=== PATIENT | male | born 1990 | race African-American/Black ===

== ENCOUNTER 2017-06-09 12:47 | Emergency (ER) | payer OTHER ==
[~2017-06-09] VITALS: Ht 170.2 cm; Wt 59.1 kg
[2017-06-09] MEDS ORDERED: IBUP-1114 PO (13:04)
[2017-06-09] MEDS ORDERED: TYLE325T5 PO (13:04)
[2017-06-09] MEDS ORDERED: ONDANSETRON 4MG/2ML VIAL (J2405) IV PRN (14:00)
[2017-06-09] MEDS ORDERED: NS 1,000 ML IV ONE (14:00)
[2017-06-09] MEDS ORDERED: KETOROLAC 30 MG/ML VIAL (J1885) IV ONE (14:00)
[2017-06-09 14:28] LABS: BASO % 0.6 % (0.0-1.0); EOS # 0.4 K/mm3 (0.0-0.50); EOS % 6.2 % (0.0-3.0); LARGE UNSTAINED CELL # 0.2 K/mm3 (0.0-0.4); LARGE UNSTAINED CELL % 2.7 % (0.0-4.0); LYMPH # 1.9 K/mm3 (1.5-6.5); LYMPH % 28.4 % (24.0-44.0); MEAN CORPUSCULAR HEMOGLOBIN 23.9 pg (27.0-33.0); MEAN CORPUSCULAR HGB CONC 30.5 g/dl (32.0-36.5); MEAN CORPUSCULAR VOLUME 78.5 fl (80.0-96.0); MONO # 0.4 K/mm3 (0.0-0.8); MONO % 6.9 % (0.0-5.0); NEUTROPHILS # 3.4 K/mm3 (1.8-7.7); NEUTROPHILS % 55.2 % (36.0-66.0); PLATELET COUNT, AUTOMATED 176 k/mm3 (150-450); RED CELL DISTRIBUTION WIDTH 13.9 % (11.5-14.5); WHITE BLOOD COUNT 6.2 K/mm3 (4.0-10.0)
[2017-06-09 14:51] LABS: ALBUMIN/GLOBULIN RATIO 1.21 (1.00-1.93); ALKALINE PHOSPHATASE 59 U/L (45-117); ALT/SGPT 19 U/L (12-78); ANION GAP 6 MEQ/L (8-16); AST/SGOT 17 U/L (15-37); BILIRUBIN,TOTAL 0.4 MG/DL (0.2-1.0); BLOOD UREA NITROGEN 15 MG/DL (7-18); CARBON DIOXIDE LEVEL 30 MEQ/L (21-32); CHLORIDE LEVEL 108 MEQ/L (98-107); CREATININE FOR GFR 0.91 MG/DL (0.70-1.30); GLOMERULAR FILTRATION RATE > 60.0 (>60); GLUCOSE, FASTING 85 MG/DL (70-105); POTASSIUM SERUM 4.5 MEQ/L (3.5-5.1); SODIUM LEVEL 144 MEQ/L (136-145); TOTAL PROTEIN 7.3 GM/DL (6.4-8.2)
--- NOTE | 2017-06-09 15:20 | REP ---
CT ABDOMEN AND PELVIS WITHOUT CONTRAST: CT abdomen and pelvis performed without IV contrast in the axial plane with sagittal and coronal reconstruction images. Visualized lung bases are clear. Liver, spleen, adrenals, pancreas and kidneys are grossly unremarkable. No renal calculi are seen. There is no evidence of hydroureteronephrosis. No abdominal aortic aneurysm is seen. There is no gross adenopathy. No free air is seen. I see no evidence of significant free fluid. No gross bowel wall thickening is seen. There is no evidence for appendicitis. There is no evidence of a pelvic mass. IMPRESSION: Grossly negative noncontrast CT abdomen and pelvis. No evidence of appendicitis. No evidence of renal calculus or hydronephrosis. Signed by Shawn Martinez MD 06/09/2017 04:51 P
[2017-06-09] MEDS ORDERED: ZOFR4TAB3 PO (16:04)
[2017-06-09] MEDS ORDERED: BENT20TA PO (16:04)
[2017-06-09] MEDS ORDERED: KETO10TAB PO (16:04)
[2017-06-09 16:08] VITALS: BP 114/69
== END 2017-06-09 16:11 | disposition home or self-care (01) ==
LOC: M ED 12:47
DX: R10.84 Generalized abdominal pain (principal); R11.0 Nausea; Z72.0 Tobacco use
CPT/HCPCS: 74176; 80053; 83690; 85025; 87880; 96374; 96375; 99283; J1885; J2405

== ENCOUNTER 2017-11-22 05:38 | Emergency (ER) | payer OTHER ==
[2017-11-22] MEDS: AUGMENTIN 875 MG TAB PO (06:53)
== END 2017-11-22 08:46 | disposition home or self-care (01) ==
LOC: M ED 05:38
DX: S61.452A Open bite of left hand, initial encounter (principal); S51.851A Open bite of right forearm, initial encounter; W54.0XXA Bitten by dog, initial encounter; Y92.009 Unspecified place in unspecified non-institutional (private) residence as the place of occurrence of the external cause; F17.210 Nicotine dependence, cigarettes, uncomplicated
CPT/HCPCS: 73090

== ENCOUNTER → 2018-09-23 | Outpatient (REF) | payer OTHER ==
[~2018-09-23] MED LIST: AUGM500T34 PO; BENT20TA PO; IBUP-1114 PO; IRON325T7 PO; KETO10TAB PO; MOOD STABILIZER; TYLE325T5 PO; VITA200016 PO; VITA500C24 PO; ZOFR4TAB14 PO
[2018-09-24 15:57] LABS: CHLAMYDIA DNA AMPLIFICATION NEGATIVE (NEGATIVE); GC DNA AMPLIFICATION POSITIVE (NEGATIVE)
== END ==
LOC: M SFHCLERA 20:29
PROVIDERS: ATTEND Physician Assistant
DX: R36.9 Urethral discharge, unspecified (principal)
CPT/HCPCS: 81002; 87070; 87077; 87086; 87491; 87591; 96372; G0435; G0463; J0696

== ENCOUNTER 2018-09-26 21:51 | Emergency (ER) | payer OTHER ==
[~2018-09-26] VITALS: Ht 172.7 cm; Wt 57.3 kg
[~2018-09-26 21:51] MED LIST changes: -IRON325T7 PO; -MOOD STABILIZER; -VITA200016 PO; -VITA500C24 PO
[2018-09-26] MEDS ORDERED: IRON325T7 PO (22:09)
[2018-09-26] MEDS ORDERED: VITA200016 PO (22:09)
[2018-09-26] MEDS ORDERED: MOOD STABILIZER (22:09)
[2018-09-26] MEDS ORDERED: VITA500C24 PO (22:09)
[2018-09-26] MEDS ORDERED: NICOTINE 21MG/24HR 1 EA TRANSDERMAL TD ONE (22:45)
[2018-09-26 23:03] LABS: HEMATOCRIT 41.8 % (42.0-52.0); MEAN CORPUSCULAR HEMOGLOBIN 23.5 pg (27.0-33.0); MEAN CORPUSCULAR HGB CONC 31.1 g/dl (32.0-36.5); MEAN CORPUSCULAR VOLUME 75.5 fl (80.0-96.0); PLATELET COUNT, AUTOMATED 178 10^3/uL (150-450); RED BLOOD COUNT 5.54 10^6/uL (4.30-6.10); WHITE BLOOD COUNT 6.8 10^3/uL (4.0-10.0)
[2018-09-26 23:40] LABS: AMPHETAMINES LEVEL URINE NEGATIVE (NEGATIVE); BARBITURATES URINE NEGATIVE (NEGATIVE); BENZODIAZEPINES URINE NEGATIVE (NEGATIVE); CANNABINOIDS URINE NEGATIVE (NEGATIVE); COCAINE METABOLITE URINE NEGATIVE (NEGATIVE); METHADONE URINE NEGATIVE (NEGATIVE); OPIATES URINE NEGATIVE (NEGATIVE); PHENCYCLIDINE URINE NEGATIVE (NEGATIVE)
[2018-09-26 23:53] LABS: ACETAMINOPHEN LEVEL < 2.0 UG/ML (10.0-30.0); ALT/SGPT 21 U/L (12-78); BILIRUBIN,DIRECT < 0.1 MG/DL (0.0-0.2); BILIRUBIN,TOTAL 0.2 MG/DL (0.2-1.0); BLOOD UREA NITROGEN 10 MG/DL (7-18); CALCIUM LEVEL 8.5 MG/DL (8.5-10.1); CARBON DIOXIDE LEVEL 28 MEQ/L (21-32); CHLORIDE LEVEL 109 MEQ/L (98-107); CREATININE FOR GFR 1.04 MG/DL (0.70-1.30); GLOMERULAR FILTRATION RATE > 60.0 (>60); GLUCOSE, FASTING 83 MG/DL (70-100); SALICYLATE LEVEL 2.4 MG/DL (5.0-30.0); SODIUM LEVEL 145 MEQ/L (136-145); TOTAL PROTEIN 7.2 GM/DL (6.4-8.2)
[2018-09-27 00:17] VITALS: BP 139/87
[2018-10-08] MEDS ORDERED: AMOX500T2 PO (03:54)
[2018-10-08] MEDS ORDERED: BUPR150T3 PO ×2 (03:54→06:26)
[2018-10-08] MEDS ORDERED: MELA3TAB PO ×2 (03:54→06:26)
[2018-10-08] MEDS ORDERED: LAMO25TA4 PO ×2 (03:54→06:26)
[2018-10-08] MEDS ORDERED: VITA2000 PO (03:54)
[2018-10-08] MEDS ORDERED: ZOLO50TA PO (03:54)
[2018-10-08] MEDS ORDERED: FERR1TAB8 PO (06:26)
[2018-10-08] MEDS ORDERED: VITA500C24 PO (06:26)
[2018-10-08] MEDS ORDERED: VITA100066 PO (06:26)
[2018-10-08] MEDS ORDERED: SERT-138 PO (06:26)
== END 2018-09-27 00:20 | disposition home or self-care (01) ==
LOC: M ED 21:51
DX: F41.8 Other specified anxiety disorders (principal); S50.811A Abrasion of right forearm, initial encounter; W26.9XXA Contact with unspecified sharp object(s), initial encounter; Y92.89 Other specified places as the place of occurrence of the external cause; F33.9 Major depressive disorder, recurrent, unspecified; F17.210 Nicotine dependence, cigarettes, uncomplicated
CPT/HCPCS: 36415; 80048; 80076; 80307; 84443; 85027; 99284; G0480

== ENCOUNTER 2018-10-09 15:18 | Inpatient (IN) | payer OTHER ==
[~2018-10-09] VITALS: Ht 170.2 cm; Wt 62.0 kg
[~2018-10-09 15:18] MED LIST changes: +AMOX500T2 PO; +BUPR150T3 PO; +FERR1TAB8 PO; +IRON325T7 PO; +LAMO25TA4 PO; +MELA3TAB PO; +MOOD STABILIZER; +SERT-138 PO; +VITA100066 PO; +VITA2000 PO; +VITA200016 PO; +VITA500C24 PO; +ZOLO50TA PO
[2018-10-09] MEDS ORDERED: MAALOX 30 ML SUSP *UDC PO PRN (15:30)
[2018-10-09] MEDS ORDERED: MOM 30ML SUSPENSION UDC PO PRN (15:30)
[2018-10-09] MEDS ORDERED: ACETAMINOPHEN TAB 650MG DOSE (2X325MG) PO PRN (15:30)
[2018-10-09 19:04] VITALS: BP 136/82
[2018-10-09] MEDS: ARIPiprazole 2 MG TAB PO SCH (20:26)
[2018-10-09] MEDS: NICOTINE POLACRILEX 2 MG GUM PO PRN (20:26)
[2018-10-09] MEDS: traZODone 50 MG TAB PO PRN (21:40)
[2018-10-10 06:39] VITALS: BP 125/86
[2018-10-10 07:14] LABS: BASO # 0.1 10^3/uL (0.0-0.2); BASO % 1.3 % (0.0-1.0); EOS # 0.3 10^3/uL (0.0-0.50); EOS % 5.6 % (0.0-3.0); HEMATOCRIT 37.9 % (42.0-52.0); HEMOGLOBIN 11.6 g/dl (13.5-17.5); LYMPH % 55.3 % (24.0-44.0); MEAN CORPUSCULAR HEMOGLOBIN 23.3 pg (27.0-33.0); MEAN CORPUSCULAR HGB CONC 30.6 g/dl (32.0-36.5); MEAN CORPUSCULAR VOLUME 76.3 fl (80.0-96.0); MONO # 0.5 10^3/uL (0.0-0.8); MONO % 9.9 % (0.0-5.0); NEUTROPHILS # 1.5 10^3/uL (1.8-7.7); NEUTROPHILS % 27.7 % (36.0-66.0); PLATELET COUNT, AUTOMATED 186 10^3/uL (150-450); RED BLOOD COUNT 4.97 10^6/uL (4.30-6.10); WHITE BLOOD COUNT 5.4 10^3/uL (4.0-10.0)
[2018-10-10 07:42] LABS: PERCENT SATURATION 37.2 % (19.7-50.0)
[2018-10-10] MEDS: VITAMIN D 1,000 INTERNATIONAL UNITS TABLET PO SCH (09:41)
[2018-10-10] MEDS: FERROUS SULFATE 325MG TAB PO SCH (09:41)
[2018-10-10 18:02] VITALS: BP 128/74
[2018-10-10] MEDS: NICOTINE POLACRILEX 2 MG GUM PO PRN (18:29)
[2018-10-10] MEDS: ARIPiprazole 2 MG TAB PO SCH (20:51)
[2018-10-10] MEDS: traZODone 50 MG TAB PO PRN (20:52)
[2018-10-11 06:33] VITALS: BP 134/69
[2018-10-11] MEDS: FERROUS SULFATE 325MG TAB PO SCH (09:23)
[2018-10-11] MEDS: VITAMIN D 1,000 INTERNATIONAL UNITS TABLET PO SCH (09:23)
--- NOTE | 2018-10-11 12:10 | MHHPEPDOC ---
General Date Of Admission: Oct 10, 2018 Legal Status: 9.37 Chief Complaint "I tried to kill myself" History of Present Illness HISTORY OF THE PRESENT ILLNESS: Patient is a 28 -year-old , AD, male, with no previous psych history who was transferred from medical unit and medically stabilized s/p intentional OD on unknown amount of Wellbutrin, vitamin D, iron pills, Lamictal, and Zoloft as a suicide attempt. 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 He is drowsy, lethargic, difficult to arouse initially on presentation. He has a past medical history of bipolar disorder, anxiety, and anemia. It is unclear how much of pills he has taken but from the emergency room provider, the individual who accompanied the patient states he had a bottle, a bag full of pills which contained Wellbutrin, vitamin D, iron pills, Lamictal, and Zoloft. The quantity which patient took is unclear. Patient states he has felt nauseous and has a few episodes of non-bloody, nonbilious vomiting. He denies any chest pain, shortness of breath, cough, fevers, chills, urinary symptoms, abdominal pain, constipation or diarrhea. He is arousable but somnolent, in no apparent distress." See assessment for pt status today. Past Psychiatric History Previous Psychiatric Diagnosis: bipolar d/o, anxiety Previous Psychiatric Admissions: denies Suicide Attempts: history of self injury per records Psychiatric Follow-up: [facility] Psychiatric medications: wellbutrin, lamictal, zoloft Past Medical History Medical Problems anemia Head Injury: No Seizures: No Hospitalizations: No Surgeries: No Family Medical/Psychiatric HX Medical Problems noncontributory Psychiatric Disorders: No Addiction: No Suicide Attemps/Completions: No Addiction History nicotine (five cigarettes per day), alcohol (socially on weekends) Social History Childhood: born and raised by his mother in [place], never met father, youngest of 5 siblings, speaks with once a week, good childhood Abuse/Trauma:denies Current Living Situation: [place] [facility] [place] Education: some college in philosophy, may want to be a teacher if he gets out of the 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[employer], [employer], 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 Social Support: fiance and family Legal: denies Marital: never , no kids, has a finance who is supportive Mental Status Examination General Appearance: well groomed, appears stated age, hospital scubs/clothing Build: average Demeanor: average, other (pleasant) Eye Contact: average Activity: average Behavior: cooperative Speech: clear, normal volume, reg/rate,rhythm,volume, other (lisp) Mood: depressed Mood "ok" Affect: full, appropriate, congruent Thought Process: logical/linear, depressed Thought Content (Delusions): none reported Thought Content (Other): none reported Thought Content (Aggressive): none reported Perception (Hallucinations): none reported Perception (Other): none reported Cognition (Impairment of): none reported Cognition(Intelligence Est.): average Oriented: Awake, Alert, Oriented times three Insight: fair Judgment: Fair Psychosis: Denies Diagnoses Bipolar I d/o mre depressed w/o psychosis Assessment Pt seen today and states he took an OD on Wellbutrin, Zoloft, and melatonin b/c he was feeling stressed out "by my company b/c it feels like I'm being targeted... I know they hate me." States he just became frustrated and took OD b/c of not wanting to deal with his Anoop anymore as he feels most of the targeting is by them... all of them. States today that he regrets his OD as he has a very supportive fiance and family that he doesn't want to loose. States he doesn't wanted to leave. Future oriented toward possibly getting out of the [employer] and being a teacher. States though that he likes his job at work and aiding others, the interaction. States he's tolerating his abilify and it's beneficial. Agreeable to increase to 5mg daily for improved mood stabilization. 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 Denies current insomnia, SI/HI, hallucinations, delusions. Is attending all groups and finding them beneficial. Initial Treatment Plan 1. Patient was admitted on a 9.37 status. 2. Complete history was obtained. 3. With patients permission, family will be contacted and database will be expanded. 4. Patients medication regimen will be reviewed and changed accordingly. 5. Patient will be provided with protected environment. 6. Patient will be treated with individual, group, and milieu therapies. 7. Patient will receive supportive psych-education. 8. Discharge planning will commence immediately. 9. Outpatient follow-up treatment will be strongly recommended. 10. The initial treatment plan will focus initially on: * Depression. * Risk for suicide. * Substance abuse. 11. increase abilify to 5mg daily for mood ESTIMATED LENGTH OF STAY: 5-7 DAYS. TIME SPENT COUNSELING AND COORDINATING INITIAL CARE: 60 minutes. Vital Signs Vital Signs Date Time Temp Pulse Resp B/P (MAP) Pulse Ox O2 Delivery O2 Flow Rate FiO2 10/11/18 06:33 98.0 50 14 134/69 (90) 10/09/18 19:04 99 Room Air Allergies Coded Allergies: No Known Allergies (Unverified , 11/22/17) AKI MCMILLAN DO Oct 11, 2018 12:10 pm
--- NOTE | 2018-10-11 13:54 | MHHPE ---
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 The patient apparently has a bag full of pills with multiple medications including Wellbutrin, vitamin D, iron pills, Lamictal, and Zoloft and the patient indicated he is not sure what he took as an overdose. The patient is very vague as to why he ingested the pills that he did and I suspect he is just minimizing his symptoms, because he does not want to be admitted to the psychiatric unit. He admits however that he has been seen at [facility], they first treated him with Zoloft and Wellbutrin and then the medicine was changed to Lamictal. He says that they think that he might be bipolar. He describes episodes where he has a lot of increased energy, very little need for sleep, and that he is constantly doing things and having racing thoughts and then he has episodes where he gets depressed, he can sleep up to three days straight, and he feels very sad he says during those days. He is very vague as to how long he may be in either one of these episodes. The patient also has a history of cutting. He actually states that he was in the emergency room in early September where he had made multiple cuts, but he denied being depressed and so he was not hospitalized. PAST PSYCHIATRIC HISTORY: This appears to be his first hospitalization, but it is not clear if there have been other episodes of cutting as I am not sure how reliable a historian he is at this point. FAMILY HISTORY: He thinks his mother has psychiatric problems, but she has never been diagnosed. He denies any suicides in the family. MEDICAL HISTORY: The patient denies any acute medical problems. ABUSE HISTORY: He denies any history of any physical or sexual abuse. SUBSTANCE ABUSE HISTORY: He denies any problems with alcohol or drugs. REVIEW OF SYSTEMS: VITAL SIGNS: The patient's blood pressure is 128/73, pulse 54 and respirations 16. APPEARANCE: The patient does not appear to be in any apparent distress. NEUROMUSCULAR SYSTEM: The patient's gait is normal and there was no involuntary movements noted. All other systems were reviewed and found to be negative. MENTAL STATUS EXAMINATION: The patient is alert and oriented times three. Eye contact is fair. Psychomotor activity is decreased. He is verbally spontaneous. There is no formal thought disorder noted. He does appear to be guarded however. He says that his mood is depressed, affect is constricted, but appropriate to his mood. He is not psychotic. He is denying being suicidal at this point. Denies homicidal ideation. Concentration is fair. Memory intact. Insight and judgment is poor. DIAGNOSIS: Other specified bipolar disorder. Rule out borderline personality disorder. TREATMENT PLAN: At this point, we will continue to monitor the patient for continued resolution of suicidal ideations and for continued elevation of his mood. The patient's had only tried the Lamictal for a few days prior to admission and indicated that he was not very compliant with taking it everyday, and so I am not going to give him Lamictal because of the risk of pretty serious rash, especially in patient's that are not very compliant. Instead, I am going to start him on a mood stabilizer, Abilify 2 mg at bedtime and he says that he does have trouble with sleep at times, and so we will try trazodone for insomnia. We will involve him in individual, group and milieu therapy and discharge home with appropriate follow-up when stable. LEONARDO
--- NOTE | 2018-10-11 16:58 | HPE ---
DATE OF ADMISSION: 10/09/2018 Please refer to the psychiatric history and evaluation for further details on this admission. 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 His ethyl alcohol (EtOH) in the emergency room was 0.107. ALLERGIES: No known allergies. PAST MEDICAL HISTORY: Bipolar disorder, anxiety, and anemia. PAST SURGICAL HISTORY: Negative. SOCIAL HISTORY: He is . He has a significant other. 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 He smokes 1 to 1 1/2 packs of cigarettes a day. He rarely drinks alcohol. He denies any recreational drug use. EKG on PCU was sinus bradycardia, 55, sinus rhythm, 82, no changes, no acute abnormalities. HOME MEDICATIONS: - vitamin C 500 mg by mouth daily - bupropion 150 mg daily - vitamin D 1000 units daily - iron 325 mg by mouth daily - Lamictal 25 mg by mouth daily - melatonin 30 mg nightly - sertraline 100 mg by mouth daily REVIEW OF SYSTEMS: Negative. He was feeling well. He had no nausea or vomiting, was eating and drinking okay, was moving his bowels and urinating without problem. PHYSICAL EXAMINATION: 28-year-old, cooperative, male, no acute distress. Height 67 inches, weight 61.4 kg, body mass index (BMI) 21.2. Blood pressure 132/80, pulse 70, respirations 16, temperature 99, oxygen saturation 99% on room air. Patient is alert and oriented times three. Pupils equal and reactive to light. Extraocular movements are intact. Cornea and sclerae clear. Conjunctivae is normal. No facial asymmetry. Pharynx, tongue, gums pink and moist. Tongue is midline. Neck is supple without lymphadenopathy. No thyromegaly. No goiter. Carotids 2+ without bruit. Chest clear to auscultation without wheeze or retraction. Heart is regular. Abdomen benign. Bowel sounds positive. Genitourinary/rectal not done. Extremities show equal strength. Full range of motion. No cyanosis, clubbing, or edema. Peripheral pulses equal and palpable bilaterally. Skin is warm and dry. IMPRESSION/PLAN: 1. Psychiatric plan per psychiatry. 2. History of vitamin D. Continue supplement. 3. History of iron. Continue supplement. Will get an iron, iron binding capacity, and ferritin level.
[2018-10-11 18:00] VITALS: BP 127/71
--- NOTE | 2018-10-11 20:50 | IPN ---
DATE: 10/10/2018 The patient today states that he continues to feel very depressed. His mood is 8/10 where the closer to 10 is the most depressed. He is feeling hopeless and helpless but not as intense as before. He did say he slept good with trazodone. MENTAL STATUS EXAM: This patient is alert and oriented times three. Eye contact is fair. Psychomotor activity is decreased. He is verbally spontaneous. There is no formal thought disorder noted. Mood is depressed. Affect full range and approriate. He is not psychotic, suicidal, homicidal. Concentration is fair. Memory intact. Insight and judgment is poor. DIAGNOSIS: Unspecified bipolar disorder. TREATMENT PLAN: We will continue to monitor him for continued resolution of suicidal ideations and for continued elevation and stabilization of his mood, and we will titrate his medications as indicated.
[2018-10-12 06:58] VITALS: BP 132/79
[2018-10-12] MEDS: VITAMIN D 1,000 INTERNATIONAL UNITS TABLET PO SCH (08:25)
[2018-10-12] MEDS: FERROUS SULFATE 325MG TAB PO SCH (08:25)
--- NOTE | 2018-10-12 09:31 | MHIPNPDOC ---
[facility] Progress Note Progress Note DATE OF SERVICE: 10/12/18 HISTORY: Patient is a 28 -year-old , AD, male, with no previous psych history who was transferred from medical unit and medically stabilized s/p intentional OD on unknown amount of Wellbutrin, vitamin D, iron pills, Lamictal, and Zoloft as a suicide attempt. 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 He is drowsy, lethargic, difficult to arouse initially on presentation. He has a past medical history of bipolar disorder, anxiety, and anemia. It is unclear how much of pills he has taken but from the emergency room provider, the individual who accompanied the patient states he had a bottle, a bag full of pills which contained Wellbutrin, vitamin D, iron pills, Lamictal, and Zoloft. The quantity which patient took is unclear. Patient states he has felt nauseous and has a few episodes of non-bloody, nonbilious vomiting. He denies any chest pain, shortness of breath, cough, fevers, chills, urinary symptoms, abdominal pain, constipation or diarrhea. He is arousable but somnolent, in no apparent distress." Pt seen on admission and states he took an OD on Wellbutrin, Zoloft, and melatonin b/c he was feeling stressed out "by my company b/c it feels like I'm being targeted... I know they hate me." States he just became frustrated and took OD b/c of not wanting to deal with his Anoop anymore as he feels most of the targeting is by them... all of them. States today that he regrets his OD as he has a very supportive fiance and family that he doesn't want to loose. States he doesn't wanted to leave. Future oriented toward possibly getting out of the [employer] and being a teacher. States though that he likes his job at work and aiding others, the interaction. States he's tolerating his abilify and it's beneficial. Agreeable to increase to 5mg daily for improved mood stabilization. 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 Denies current insomnia, SI/HI, hallucinations, delusions. Is attending all groups and finding them beneficial. VITAL SIGNS: See below. NEW TEST RESULTS: See below. CURRENT MEDICATIONS: See below. MENTAL STATUS EXAMINATION: General Appearance: well groomed, appears stated age, hospital scubs/clothing Build: average Demeanor: average, other (pleasant) Eye Contact: average Activity: average Behavior: cooperative Speech: clear, normal volume, reg/rate,rhythm,volume, other (lisp) Mood: less depressed Mood "alright" Affect: full, appropriate, congruent Thought Process: logical/linear, less depressed Thought Content (Delusions): none reported Thought Content (Other): none reported Thought Content (Aggressive): none reported Perception (Hallucinations): none reported Perception (Other): none reported Cognition (Impairment of): none reported Cognition(Intelligence Est.): average Oriented: Awake, Alert, Oriented times three Insight: fair Judgment: Fair Psychosis: Denies DIAGNOSES: 1.Bipolar I d/o mre depressed w/o psychosis ASSESSMENT:Pt seen today and states his mood is better. Still has yet to speak with his Anoop about how he feels "singled out" by them and encouraged to call them while he's here in a supportive environment and discuss how he feels in the hopes that he's acknowledged by them. States he's tolerating his abilify and it's beneficial. Denies current insomnia, SI/HI, hallucinations, delusions. Is attending all groups and finding them beneficial. He feels safe here. MANAGEMENT PLAN: continue current plan. Medications: abilify to 5mg daily for mood TIME SPENT: 30 minutes. Vital Signs Vital Signs Date Time Temp Pulse Resp B/P (MAP) Pulse Ox O2 Delivery O2 Flow Rate FiO2 10/12/18 06:58 98.0 59 14 132/79 (96) 10/09/18 19:04 99 Room Air Current Medications Current Medications Acetaminophen (Tylenol Tab) 650 mg Q6HP PRN PO HEADACHE or DISCOMFORT Last administered on 10/09/18at 21:41; Start 10/09/18 at 15:30 Al Hydrox/Mg Hydrox/Simethicone (Mylanta) 30 ml Q4HP PRN PO HEARTBURN/INDIGESTION; Start 10/09/18 at 15:30 Aripiprazole (AbiLIFY) 2 mg QHS PO Last administered on 10/10/18at 20:51; Start 10/09/18 at 21:00; Stop 10/11/18 at 12:11; Status DC Aripiprazole (AbiLIFY) 5 mg QHS PO Last administered on 10/11/18at 21:14; Start 10/11/18 at 21:00 Ferrous Sulfate (Ferrous Sulfate) 325 mg DAILY PO Last administered on 10/12/18at 08:25; Start 10/10/18 at 09:00 Magnesium Hydroxide (Milk Of Magnesia) 30 ml DAILYPRN PRN PO CONSTIPATION; Start 10/09/18 at 15:30 Nicotine (Nicorette) 2 mg Q2HP PRN PO NICOTINE WITHDRAWAL Last administered on 10/10/18at 18:29; Start 10/09/18 at 19:45 Trazodone HCl (Desyrel) 50 mg QHSP PRN PO INSOMNIA Last administered on 10/10/18at 20:52; Start 10/09/18 at 15:30 Vitamin D (Vitamin D) 1,000 units DAILY PO Last administered on 10/12/18at 08:25; Start 10/10/18 at 09:00 Allergies Coded Allergies: No Known Allergies (Unverified , 11/22/17) AKI MCMILLAN DO Oct 12, 2018 9:31 am
[2018-10-12 18:22] VITALS: BP 128/70
[2018-10-13 06:56] VITALS: BP 122/76
[2018-10-13] MEDS: VITAMIN D 1,000 INTERNATIONAL UNITS TABLET PO SCH (08:17)
[2018-10-13] MEDS: NICOTINE POLACRILEX 2 MG GUM PO PRN (08:18)
[2018-10-13] MEDS: FERROUS SULFATE 325MG TAB PO SCH (08:18)
--- NOTE | 2018-10-13 08:43 | MHDSPDOC ---
[facility] Discharge Summary Discharge Summary DATE OF ADMISSION: Oct 09, 2018 at 3:18 pm DATE OF DISCHARGE: Oct 13, 2018 DISCHARGE DIAGNOSES: 1. 1.Bipolar I d/o mre depressed w/o psychosis REASON FOR ADMISSION: Patient is a 28 -year-old , AD, male, with no previous psych history who was transferred from medical unit and medically stabilized s/p intentional OD on unknown amount of Wellbutrin, vitamin D, iron pills, Lamictal, and Zoloft as a suicide attempt. 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 He is drowsy, lethargic, difficult to arouse initially on presentation. He has a past medical history of bipolar disorder, anxiety, and anemia. It is unclear how much of pills he has taken but from the emergency room provider, the individual who accompanied the patient states he had a bottle, a bag full of pills which contained Wellbutrin, vitamin D, iron pills, Lamictal, and Zoloft. The quantity which patient took is unclear. Patient states he has felt nauseous and has a few episodes of non-bloody, nonbilious vomiting. He denies any chest pain, shortness of breath, cough, fevers, chills, urinary symptoms, abdominal pain, constipation or diarrhea. He is arousable but somnolent, in no apparent distress." Pt seen on admission and states he took an OD on Wellbutrin, Zoloft, and melatonin b/c he was feeling stressed out "by my company b/c it feels like I'm being targeted... I know they hate me." States he just became frustrated and took OD b/c of not wanting to deal with his Anoop anymore as he feels most of the targeting is by them... all of them. States today that he regrets his OD as he has a very supportive fiance and family that he doesn't want to loose. States he doesn't wanted to leave. Future oriented toward possibly getting out of the [employer] and being a teacher. States though that he likes his job at work and aiding others, the interaction. States he's tolerating his abilify and it's beneficial. Agreeable to increase to 5mg daily for improved mood stabilization. 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 Denies current insomnia, SI/HI, hallucinations, delusions. Is attending all groups and finding them beneficial. CONSULTANTS INVOLVED: none TREATMENT AND PROGRESS ON THE UNIT : Pt was admitted to [facility], seen for psychiatric assessment and started on abilify 10mg qhs. He was provided trazodone 50mg qhs prn insomnia. Pt found his medications beneficial and tole rated them well. He attended groups daily during his stay. His symptoms improved with treatment. On day of discharge he denied depression, anxiety, insomnia, SI/HI, hallucinations, delusions. He was discharged home after Anoop meeting with follow-up at [facility]. He felt safe for discharge. DISCHARGE ASSESSMENT: Pt seen today and states his mood is good. States he's looking forward to going home and being with his fiance who is supportive. States he's tolerating his abilify and it's beneficial. Denies depression, anxiety, insomnia, SI/HI, hallucinations, delusions. He attended all groups during his stay and found them beneficial. He feels safe to be discharged home with his Anoop today. MENTAL STATUS EXAMINATION ON DISCHARGE: General Appearance: well groomed, appears stated age, hospital scrubs/clothing Build: average Demeanor: average, other (pleasant) Eye Contact: average Activity: average Behavior: cooperative Speech: clear, normal volume, reg/rate,rhythm,volume, other (lisp) Mood: euthymic, full, bright Mood "good" Affect: full, appropriate, congruent Thought Process: logical/linear Thought Content (Delusions): none reported Thought Content (Other): none reported Thought Content (Aggressive): none reported Perception (Hallucinations): none reported Perception (Other): none reported Cognition (Impairment of): none reported Cognition(Intelligence Est.): average Oriented: Awake, Alert, Oriented times three Insight: good Judgment: good Psychosis: Denies MEDICATIONS ON DISCHARGE: abilify to 5mg daily for mood trazodone 50mg qhs prn insomnia PLAN/FOLLOWUP ARRANGEMENTS: d/c home with Anoop with follow-up at [facility]. The amount of time spent in the coordination of care for this patient was approximately 30 minutes. Vital Signs/I&Os Vital Signs Date Time Temp Pulse Resp B/P (MAP) Pulse Ox O2 Delivery O2 Flow Rate FiO2 10/13/18 06:56 98.3 54 16 122/76 (91) 10/09/18 19:04 99 Room Air Medications Scheduled Aripiprazole (Aripiprazole) 5 Mg Tab, 5 MG PO QHS for mood, #10 Scheduled PRN Trazodone HCl (Trazodone HCl) 50 Mg Tab, 50 MG PO QHSP PRN for INSOMNIA, #10 Allergies Coded Allergies: No Known Allergies (Unverified , 11/22/17) AKI MCMILLAN DO Oct 13, 2018 8:42 am
[2018-10-13] MEDS ORDERED: ARIP5TA PO (08:44)
[2018-10-13] MEDS ORDERED: TRAZO50TA PO (08:44)
== END 2018-10-13 11:00 | disposition home or self-care (01) | DRG 885 ==
LOC: M ED INP 15:18 → M PSY 17:58
PROVIDERS: ADMIT Psychiatry & Neurology Psychiatry; ATTEND Psychiatry & Neurology Psychiatry
DX: F31.30 Bipolar disorder, current episode depressed, mild or moderate severity, unspecified (principal); F17.210 Nicotine dependence, cigarettes, uncomplicated; D64.9 Anemia, unspecified; Z91.5 Personal history of self-harm; Z79.899 Other long term (current) drug therapy

== ENCOUNTER 2018-11-05 21:22 | Emergency (ER) | payer OTHER ==
[~2018-11-05 21:22] MED LIST changes: +ARIP5TA PO; +TRAZO50TA PO
[2018-11-05] MEDS ORDERED: MELA3TAB49 PO (21:41)
[2018-11-05 21:43] VITALS: BP 129/81
[2018-11-05 21:59] LABS: HEMATOCRIT 41.6 % (42.0-52.0); MEAN CORPUSCULAR HEMOGLOBIN 23.6 pg (27.0-33.0); MEAN CORPUSCULAR HGB CONC 31.3 g/dl (32.0-36.5); MEAN CORPUSCULAR VOLUME 75.5 fl (80.0-96.0); PLATELET COUNT, AUTOMATED 194 10^3/uL (150-450); RED BLOOD COUNT 5.51 10^6/uL (4.30-6.10); WHITE BLOOD COUNT 5.5 10^3/uL (4.0-10.0)
[2018-11-05 22:33] LABS: ACETAMINOPHEN LEVEL < 2.0 UG/ML (10.0-30.0); ALBUMIN 4.2 GM/DL (3.2-5.2); ALT/SGPT 32 U/L (12-78); BILIRUBIN,DIRECT 0.1 MG/DL (0.0-0.2); BILIRUBIN,TOTAL 0.4 MG/DL (0.2-1.0); BLOOD UREA NITROGEN 8 MG/DL (7-18); CALCIUM LEVEL 8.8 MG/DL (8.5-10.1); CARBON DIOXIDE LEVEL 28 MEQ/L (21-32); CHLORIDE LEVEL 107 MEQ/L (98-107); CREATININE FOR GFR 0.94 MG/DL (0.70-1.30); ETHYL ALCOHOL (ETHANOL) < 0.003 % (0.000-0.010); GLOMERULAR FILTRATION RATE > 60.0 (>60); GLUCOSE, FASTING 84 MG/DL (70-100); POTASSIUM SERUM 4.1 MEQ/L (3.5-5.1); SALICYLATE LEVEL < 1.7 MG/DL (5.0-30.0); SODIUM LEVEL 142 MEQ/L (136-145); TOTAL PROTEIN 7.4 GM/DL (6.4-8.2)
[2018-11-05 23:48] LABS: AMPHETAMINES LEVEL URINE NEGATIVE (NEGATIVE); BARBITURATES URINE NEGATIVE (NEGATIVE); BENZODIAZEPINES URINE NEGATIVE (NEGATIVE); CANNABINOIDS URINE NEGATIVE (NEGATIVE); COCAINE METABOLITE URINE NEGATIVE (NEGATIVE); METHADONE URINE NEGATIVE (NEGATIVE); OPIATES URINE NEGATIVE (NEGATIVE); PHENCYCLIDINE URINE NEGATIVE (NEGATIVE)
[2018-11-06 00:31] LABS: FREE T4 0.93 NG/DL (0.76-1.46)
== END 2018-11-06 01:22 | disposition home or self-care (01) ==
LOC: M ED 21:22
DX: S50.812A Abrasion of left forearm, initial encounter (principal); X78.9XXA Intentional self-harm by unspecified sharp object, initial encounter; Y92.89 Other specified places as the place of occurrence of the external cause; Z91.5 Personal history of self-harm; F32.9 Major depressive disorder, single episode, unspecified; F17.210 Nicotine dependence, cigarettes, uncomplicated; Z79.899 Other long term (current) drug therapy
CPT/HCPCS: 36415; 80048; 80076; 80307; 84439; 84443; 85027; 99284; G0480

== ENCOUNTER 2019-04-07 14:09 | Emergency (ER) | payer OTHER ==
[~2019-04-07] VITALS: Ht 167.6 cm; Wt 63.6 kg
[~2019-04-07 14:09] MED LIST changes: +ARIP1TAB6 PO; -ARIP5TA PO; +FERR325T82 PO; -IRON325T7 PO; +MELA3TAB49 PO; +TRAZ1TAB10 PO; -TRAZO50TA PO
[2019-04-07] MEDS ORDERED: IBUP-1114 PO (14:26)
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
[2019-04-07 18:51] VITALS: BP 125/77
== END 2019-04-07 18:53 | disposition home or self-care (01) ==
LOC: M ED 14:09
DX: G44.209 Tension-type headache, unspecified, not intractable (principal); F33.9 Major depressive disorder, recurrent, unspecified; F41.9 Anxiety disorder, unspecified; Z77.098 Contact with and (suspected) exposure to other hazardous, chiefly nonmedicinal, chemicals